=== PATIENT | female | born 1995 | race Caucasian/White ===

== ENCOUNTER 2018-12-02 12:08 | Emergency (ER) | payer OTHER ==
[~2018-12-02] VITALS: Ht 162.6 cm; Wt 58.1 kg
[2018-12-02 12:11] VITALS: BP 118/63; TEMP 97.9
[2018-12-02] MEDS ORDERED: ALDACTONE 100M100 MG PO (12:18)
[2018-12-02] MEDS ORDERED: NIKKI 3 MG-0.01 EACH PO (12:19)
[2018-12-02] MEDS ORDERED: PROZAC 10MG10 MG PO (12:19)
[2018-12-02] MEDS ORDERED: PREDNISONE20 MG PO (13:30)
[2018-12-02] MEDS ORDERED: BACTRIM DS 8001 TAB PO (13:30)
[2018-12-02 13:38] VITALS: PULSE 75
== END 2018-12-02 13:38 | disposition home or self-care (01) ==
LOC: COL.ER 12:08
DX: T63.301A Toxic effect of unspecified spider venom, accidental (unintentional), initial encounter (principal); T78.40XA Allergy, unspecified, initial encounter; Z88.1 Allergy status to other antibiotic agents
CPT/HCPCS: J1100